=== PATIENT | male | born 1995 | race African-American/Black ===

== ENCOUNTER 2025-02-17 22:43 | Emergency (ER) | payer SELFPAY ==
[2025-02-17 22:45] VITALS: BP 116/82; PULSE 84; RESP 16; TEMP 36.6; O2SAT 98; BMI 24.2
[2025-02-17] MEDS: 0.9% Normal Saline (1000mL) 1,000 ML 999 ML IV (23:21)
[2025-02-17 23:25] LABS: Hematocrit 45.8 % (40-54); Hemoglobin 15.9 g/dL (13.0-16.5); Immature Granulocytes Count 0.000 X10^3/uL (0.0-0.0); Mean Corp Hgb Conc 34.7 g/dL (32-36); Mean Corpuscular Volume 89.5 fL (80-94); Mean Platelet Vol. 9.7 fl (6.2-12.0); NRBC Flagged by Analyzer 0 % (0-5); Platelet Count 299 K/mm3 (150-450); RBC Distribution Width CV 12.5 % (11.6-14.6); RBC Distribution Width SD 41.1 fl (35.1-43.9); Red Blood Count 5.12 M/mm3 (4.6-6.2); White Blood Count 5.5 K/mm3 (4.4-11.0)
[2025-02-17 23:49] LABS: Anion Gap 10 (5-15); BUN 13 mg/dL (4-19); BUN/Creat Ratio 14.8 RATIO (10-20); CPK Total, Creatine Kinase 927 U/L (24-195); Calcium,Total 9.1 mg/dL (7.6-11.0); Carbon Dioxide 23.2 mmol/L (21.0-32.0); Chloride 105 mmol/L (98-108); Estimated Creatinine Clearance 148.14 ml/min (50-250); Glucose 103 mg/dL (70-99); Potassium 3.5 mmol/L (3.3-5.1)
[2025-02-18] MEDS: 0.9% Normal Saline (1000mL) 1,000 ML 999 ML IV ×2 (00:32→02:21)
[2025-02-18 00:44] VITALS: BP 113/76; PULSE 54; RESP 16; O2SAT 100
[2025-02-18 00:55] LABS: AST(SGOT) 41 U/L (<=37); Alanine Aminotransfer ALT/SGPT 43 U/L (<=46); Albumin, Serum 4.3 g/dL (3.5-5.0); Alkaline Phosphatase 56 U/L (40-129); Bilirubin, Direct 0.33 mg/dL (0.00-0.30); Globulin 2.5 g/dL (2.2-4.2)
--- NOTE | 2025-02-18 00:55 | EX.ED.DYSGE1 ---
HPI History of Present Illness Chief Complaint: Lower Extremity Injury Narrative Narrative: Patient was seen and examined after presenting to ED for pain initially starting in his right lower extremity he states that it will occur intermittently he sometimes seems to notice it more when he is smoking marijuana. But he will state that he will almost clenched up almost as if it were cramp and it would act as if it would affect the entirety of his right lower extremity and would sometimes contract open to his back and abdomen. Denies having any sort of fevers no reported trauma no skin discoloration per his statement. PFSH PFSH Medical History no medical history Home Medications ?Medication ?Instructions ?Recorded ?Last Taken ?Type NK 02/17/25 Unknown History Allergy/AdvReac Type Severity Reaction Status Date / Time No Known Allergies Allergy Verified 02/17/25 22:45 Surgical History no surgical history Social History Smoking Status: Never smoker ROS ROS ED ROS Narrative Pertinent Positives: Right lower extremity intermittent pain more cramping in nature Pertinent Negatives: Numbness tingling fevers chills chest pain pressure shortness of breath recent travel redness history of DVT or PE or use of anticoagulation The remainder of review of systems negative unless otherwise stated in the HPI above. Systems reviewed including constitutional, psychiatric, cardiovascular, respiratory, integument, HENT, gastrointestinal. EXAM Physical Exam Narrative Exam Narrative: Patient is afebrile hemodynamically stable does not appear toxic or in distress she is normocephalic and atraumatic normal heart and lung sounds. His abdomen is soft nontender nondistended no palpable pulsatile mass. He has full range of motion of his extremities especially his lower extremities. His skin is warm and well-perfused intact MSPs no lower extremity edema or calf tenderness no overlying cellulitic changes vesicular lesions hemorrhagic bullae or crepitus on palpation compartments are soft Const Vital Signs: 02/17/25 22:45 02/18/25 00:44 02/18/25 02:00 Temperature 98 F Temperature Source Temporal Pulse Rate 84 54 L 64 Respiratory Rate 16 16 14 Blood Pressure 116/82 H 113/76 106/81 H Blood Pressure Mean 93 88 89 Pulse Ox 98 100 100 Oxygen Delivery Method Room Air Room Air Room Air 02/18/25 04:00 Temperature Temperature Source Pulse Rate Respiratory Rate Blood Pressure 99/57 L Blood Pressure Mean 71 Pulse Ox Oxygen Delivery Method MDM MDM MDM Narrative Medical decision making narrative: Nursing notes, triage notes, available previous documentation, and vital signs were reviewed. Any discrepancies noted were addressed. Differential Diagnoses: Will evaluate for electrolyte abnormalities or evidence of rhabdo is not a necrotizing process or cellulitis low suspicion as far as DVT Interventions: Fluids Given: 3 L normal saline Labs Reviewed: No leukocytosis leukopenia anemia electrolyte abnormality the or renal insufficiency however CPK was elevated at 927. Minimal elevation of AST to 41 no other significant transaminitis Imaging Reviewed: Imaging not clinically indicated Previous Documentation Reviewed: None available or applicable at this time. ED Course: Patient presenting with symptoms as stated above found to have a slightly elevated CPK at 927 patient has been given IV fluids we will recheck his CPK. CPK down trended to 700s patient states he feels a lot better he wants to go home says he will hydrate at home he did receive an total 3 L of normal saline This note was made utilizing voice recognition software. All attempts were made to correct spelling or other errors prior to note completion. However, due to the fast-paced nature of emergency medicine, some errors may still be present. Lab Data Labs: Laboratory Results - last 24 hr 02/17/25 02/18/25 23:20 04:15 WBC 5.5 RBC 5.12 Hgb 15.9 Hct 45.8 MCV 89.5 MCH 31.1 MCHC 34.7 RDW Std Deviation 41.1 RDW Coeff of Margie 12.5 Plt Count 299 MPV 9.7 Immature Gran % (Auto) 0.000 Neut % (Auto) 28.2 L Lymph % (Auto) 59.4 H [place] % (Auto) 10.3 H Eos % (Auto) 1.5 Baso % (Auto) 0.6 Absolute Neuts (auto) 1.5 L Absolute Lymphs (auto) 3.24 Nucleated RBC % 0 Sodium 139 Potassium 3.5 Chloride 105 Carbon Dioxide 23.2 Anion Gap 10 BUN 13 Creatinine 0.84 Estim Creat Clear Calc 148.14 Est GFR (MDRD) Non-Af 119 BUN/Creatinine Ratio 14.8 Glucose 103 H Calcium 9.1 Total Bilirubin 0.90 Direct Bilirubin 0.33 H AST 41 H ALT 43 Alkaline Phosphatase 56 Total Creatine Kinase 927 H 708 H Total Protein 6.9 Albumin 4.3 Globulin 2.5 Discharge Plan Triage Chief Complaint: Lower Extremity Injury ED Provider: Anita Olvera Dx/Rx/DC Orders Clinical Impression: Lower extremity pain, Leg cramping, Elevated creatine kinase level Instructions: Creatine Kinase W Isoenzymes Blood Prescriptions: No Action NK Primary Care Provider: Care Physician,No Primary Referrals: Veronica Garzon MD [Med Staff - [employer], Internal Medicine] Care Physician,No Primary [Primary Care Provider, Medical] Activity Restrictions/Additional Instructions: Make sure you are hydrating with water also with something with electrolytes like Gatorade if you start having worsening pain do not hesitate to return Print Language: Nepali Disposition Disposition: Home, Self Care
[2025-02-18 02:00] VITALS: BP 106/81; PULSE 64; RESP 14; O2SAT 100
[2025-02-18 04:00] VITALS: BP 99/57
[2025-02-18 04:38] LABS: CPK Total, Creatine Kinase 708 U/L (24-195)
[2025-02-18 05:58] VITALS: BP 116/95; PULSE 75; RESP 16; TEMP 36.7; O2SAT 100
== END 2025-02-18 06:09 | disposition home or self-care (01) ==
PROVIDERS: Emergency Provider Specialist/Technologist Athletic Trainer; Visit Provider Specialist/Technologist Athletic Trainer
DX: M79.604 Pain in right leg (principal); R25.2 Cramp and spasm; R74.8 Abnormal levels of other serum enzymes
CPT/HCPCS: 80048; 80076; 82550; 85025; 96360; 96361; 99284; A4216